=== PATIENT | female | born 1970 | race Caucasian/White ===

== ENCOUNTER 2025-03-10 09:12 | Outpatient (CLI) | payer OTHER, SELFPAY ==
--- NOTE | ~2025-03-10 | MR_ITS ---
MR breast BI wo/w con 03/15/2025 13:12 CDT INDICATION: 55-year-old female with family history of malignant neoplasm. TECHNIQUE: MRI of the breasts perform using standard protocol pre-and post IV contrast with the following sequences: Axial T2 STIR, axial T1, axial vibrant T1 with fat suppression precontrast and multiphasic postcontrast. 16 cc of MultiHance COMPARISON: No prior studies for comparison. FINDINGS: There is moderate fibroglandular tissue bilaterally. There is mild background enhancement which is relatively symmetric with nodular configuration bilaterally. Right breast: There are no abnormalities on the precontrast sequences. There is mild background parenchymal enhancement. No enhancing lesions following contrast administration. No areas of enhancement meeting threshold criteria on CAD analysis. No evidence of signal abnormalities in the axillary or internal mammary node distributions. LEFT BREAST: No signal abnormalities on precontrast sequences. There is mild background parenchymal enhancement. Focal enhancing mass lower outer quadrant at 6:00 anterior third measuring 6 x 3 x 2 mm without oval configuration and circumscribed margins. There is internal enhancement with rapid initial enhancement and subsequent washout kinetics. No suspicious axillary or internal mammary lymphadenopathy. IMPRESSION: 1: Left breast: 6 mm enhancing mass with circumscribed margins and rapid washout kinetics. Recommend correlation with diagnostic bilateral mammogram and left breast ultrasound. 2: Right breast: Negative. No evidence of malignancy. BI-RADS category 1. Recommend annual mammography follow-up. BI-RADS CATEGORY 0 - INCOMPLETE STUDY, NEED ADDITIONAL IMAGING EVALUATION. Reviewed, dictated and finalized at location [facility]. IMPRESSION: 1: Left breast: 6 mm enhancing mass with circumscribed margins and rapid washo ut kinetics. Recommend correlation with diagnostic bilateral mammogram and left breast ultrasound. 2: Right breast: Negative. No evidence of malignancy. BI-RADS category 1. R ecommend annual mammography follow-up. BI-RADS CATEGORY 0 - INCOMPLETE STUDY, NEED ADDITIONAL IMAGING EVALUATION.
== END 2025-03-10 09:13 | disposition home or self-care (01) ==
PROVIDERS: PCP Family Medicine
DX: N63.23 Unspecified lump in the left breast, lower outer quadrant (principal); Z80.3 Family history of malignant neoplasm of breast
CPT/HCPCS: 77049; A9577; C8908